=== PATIENT | female | born 2000 ===

== ENCOUNTER → 2020-12-18 | Day surgery (SDC) | payer OTHER ==
[~2020-12-18] VITALS: Ht 167.6 cm; Wt 56.7 kg
[~2020-12-18] MED LIST: AMOXICILLIN500 M2 PO; FLAGYL500 MG PO; MOTRIN600 MG PO; OXYCODONE-ACET1 EAC1 PO
[2020-12-18 08:18] LABS: HCG (URINE) SCREEN NEGATIVE (NEGATIVE)
[2020-12-18 08:36] LABS: BASOPHIL 0.3 % (0-2); EOSINOPHIL 10.6 % (0-5); HCT 38.8 % (37.0-47.0); HGB 12.9 g/dl (12.5-16.0); LYMPHOCYTE 28.4 % (15-48); MCH 30.6 pg (25.0-31.0); MCHC 33.2 g/dL (32.0-36.0); MCV 91.9 fL (78.0-100.0); MONOCYTE 6.2 % (0-12); MPV 9.6 fL (6.0-9.5); NEUTROPHIL 54.2 % (41-80); NRBC 0; PLT 197 K/uL (150-400); RBC 4.22 M/uL (4.20-5.40); RDW 13.4 % (11.5-14.0); WBC 5.9 K/uL (4.0-10.5)
== END | disposition home or self-care (01) ==
LOC: FAS 07:58
PROVIDERS: Oral & Maxillofacial Surgery
DX: K02.9 Dental caries, unspecified (principal); K04.7 Periapical abscess without sinus
CPT/HCPCS: D7140; D7210; 36415; 84703; 85025; J1100; J1885; J2250; J2405; J2704; J2710; J7120